=== PATIENT | female | born 1985 | race Caucasian/White ===

== ENCOUNTER 2017-08-22 18:00 | Outpatient (RCR) | payer OTHER, SELFPAY ==
--- NOTE | 2017-08-15 13:21 | HP.PTEVAL ---
Patient's Visit Information GENIE KEENE is a 32 year old F referred to Physical Therapy by Jesse Terrazas with a diagnosis of post concussion.. Date of Evaluation: 08/15/17 Physical Therapist: Justice Wallace DPT, OC - Visit Plan Frequency: 1x/Week Duration: 4-6 Weeks Plan: weekly x 4-6 as needed for progression of vestibular adaptation/habituation exercises. MSQ as needed. - Subjective Subjective: Walked into barbell at gym and bumped head.Initial in December 2015. Saw [facility] in February of that year and put on meds. Worsened over next couple months and did not go away. LEDBETTER and nausea continued with workout. Aslo reading and driving became worse. Got migraines. If very tired then felt like [place] was moving. Saw concussion specialist in [place] and ran a few tests negative. Eye doctor asked her to manage symptoms. Now is having difficulty performing at work with concentration. Has trouble reading with comprehension and eyestrain, gets LEDBETTER easily. LEDBETTER are frontal. Glare can also cause this. Wearing computer glasses at work. Striped shirts can be bothersome. Crowds and grocery stores make manageing life difficulty. Dizzy sometimes, LEDBETTER improving, no nausea lately. Changing position to standing causes short term dizzyness. Sleep is interrupted due to anxiety at work. mind races and sees counselor for thiat. Working out typically helps, heavy days are worse and needs to stay hydrated. Does powerlifting squats and volume right now. Needs to catch breath after a set. Deadlifts are the worst. 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 Performance can suffer. - Pain LEDBETTER Pain Intensity (Out of 10): 1 Pain Intensity Range: 0, 5 - Objective Walks well and trasnfers I. - B hallpike michele. C/S AROM WFL and painfree. Oculomotor: no nystagmus with gaze or head shake. pursuit and saccades are nromal. - head thrust. - skew eye deviations. VOR is symptomatic after 15 seconds and challenging quality bello with ambulation but safe. Balance appears to be good. - Balance Scores Functional Gait Assessment Score: 27 % Disability: 10.0000 CATSIB Score (Max score 120 seconds): 120 - Goals Goal 1:: 60 sec VOR x 2 walkign without symptoms. Goal Time Frame: 4-6 Weeks Goal 2:: Work withotu symptoms Goal Time Frame: 4-6 Weeks Goal 3:: Pt feel 90% improved in symptoms of LEDBETTER and goofy feeling overall. Goal Time Frame: 4-6 Weeks - Rehabilitation Potential Physical Therapy Diagnosis: possible vestibualr problems from post concussion. Rehabilitation Potential: Fair - Anticipated Interventions Patient/Client Instruction: Educate patient on: Condition, Plan of Care For the Purpose of:: To decrease pain Other: decrease dizzyness/LEDBETTER Comment: adaptation and habituation. For the Purpose of:: To decrease pain, To improve ability of physical actions for home/community/work/leisure Thank you for the opportunity to evaluate your patient. For Medicare and Medicare HMO plans, please review the plan of care and approve it. It will need to be FAXED BACK to us at [phone] for Medicare purposes. Please let me know if there are questions or concerns regarding this plan of care. Physician Signature: Date:
--- NOTE | 2017-11-07 11:18 | HP.PT.NRP ---
HP - Discharge Summary (1) - Patient Information GENIE KEENE was seen in my office for initial evaluation on 08/15/17. The following Plan of Care was established for this patient: Initial Frequency: 1x/Week Initial Duration: 4-6 Weeks - Anticipated Interventions Patient/Client Instruction: Educate patient on: Condition, Plan of Care For the Purpose of:: To decrease pain Other: decrease dizzyness/LEDBETTER For the Purpose of:: To decrease pain, To improve ability of physical actions for home/community/work/leisure This patient was last seen in our office 08/22/17. Pertinent comments regarding their Physical therapy will appear below: Pt seen 2 visits of plan of care and then cancelled remaining visits. At this point, I will discontinue due to nonattendance as it has jose over two months. At this point I will be discontinuing this patient from physical therapy. I would be happy to see this patient again in the future if found appropriate by the physician. Thank you! Justice Wallace, DPT, OC
== END 2017-08-22 19:00 | disposition home or self-care (01) ==
LOC: PT 18:00
PROVIDERS: Family Provider Family Medicine; PCP Family Medicine; Visit Provider Family Medicine
DX: F07.81 Postconcussional syndrome (principal)
CPT/HCPCS: 97110; 97162; 97530

== ENCOUNTER → 2017-10-16 17:40 | Outpatient (CLI) | payer OTHER, SELFPAY ==
--- NOTE | 2017-10-16 17:42 | CT_ITS ---
STUDY: CT PELVIS WITHOUT CONTRAST REASON FOR EXAM: Female, 32 years old. Mass on right posterior buttock/hip for 1.5 years. Fell on it 2 months ago with the subsequent enlargement. RADIATION DOSAGE (If Supplied By Facility): CTDIvol = ( 22.36 ) mGy, DLP = ( 676.92 ) mGycm TECHNIQUE: Transaxial imaging of the pelvis was performed with oral contrast, and without intravenous administration of contrast material. Multiplanar coronal and sagittal images were reformatted. Individualized dose optimization techniques were used for this CT. COMPARISON: None. FINDINGS: Normal urinary bladder. The uterus appears normal. Normal ovaries. Normal visualized small intestine. Normal visualized colon. There is no pelvic fluid. There is no pelvic mass lesion or lymphadenopathy. Normal visualized pelvic arteries. Normal abdominal wall. There is a low attenuation mass in the left gluteal muscles which measures 9.1 x 6.1 x 6.3 cm. A contains numerous linear internal calcifications as well as a larger spiculated calcification in its upper most portion. This appears to displace the gluteal muscles posteriorly and the piriformis anteriorly with slight protrusion through the greater sciatic notch. There is involvement off the lateral aspect of the sacrum with associated bony productivity which extends outward along the medial aspect of the mass. The right sacroiliac joint and blanche appear intact. CT/Pelvis without IV Contrast IMPRESSION: Large soft tissue mass within the right gluteal region with involvement on the sacrum. 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 Ultimately biopsy will be required for more definitive diagnosis. Electronically Signed: Timothy Pierce DO at 18:13 EST Tel [phone], Service support ,
== END ==
PROVIDERS: Family Provider Family Medicine; PCP Family Medicine; Visit Provider Family Medicine
DX: M25.551 Pain in right hip (principal)
CPT/HCPCS: 72192

== ENCOUNTER 2018-02-28 23:24 | Emergency (ER) | payer OTHER, SELFPAY ==
[2018-02-28 23:26] VITALS: BP 129/87; PULSE 82; RESP 16; TEMP 36.6; O2SAT 98; BMI 24.3
--- NOTE | 2018-02-28 23:46 | RAD_ITS ---
STUDY: X-RAY - RIGHT HAND REASON FOR EXAM: Female, 32 years old. Trauma TECHNIQUE: 3 view(s) of the hand. COMPARISON: None. FINDINGS: Normal radiocarpal articulation. Normal distal radioulnar joint. Normal visualized carpal bones. Normal carpal articulations Normal carpometacarpal articulation of the thumb. Normal second through fifth carpometacarpal joints. Normal metacarpi. Normal metacarpophalangeal joint of the thumb. Normal interphalangeal joint of the thumb. Normal proximal and distal phalanges of the thumb. Normal metacarpophalangeal joints of the second through fifth fingers. Normal proximal and distal interphalangeal joints of the second through fifth fingers. Normal phalanges of the second through fifth fingers. There is soft tissue swelling with subcutaneous air along the first digit. There is NO foreign body. RAD/Hand Min 3 Views IMPRESSION: There is soft tissue swelling with subcutaneous air along the first digit. There is NO foreign body. There is NO fracture. Electronically Signed: Velasquez Sykes MD at 1:01 EDT , Service support ,
--- NOTE | 2018-03-01 02:05 | ED.DCSUM_ITS ---
- ER Visit Summary Date of Service: 03/01/18 Chief Complaint: Dog bite History of Present Illness: The patient is a 32 F presenting for evaluation secondary to a dog bite to the right hand. Patient is right-hand dominant. Patient states that her dog was hit in the street today, and it bit her in the right hand when she was trying to help it. Patient states that her tetanus status is not up-to-date. She denies any numbness or weakness. Physical Examination: Physical exam is unremarkable except for upper extremity exam. Patient has normal active full range of motion at the wrist and index long ring and small digits. There is normal flexion extension abduction and adduction of the thumb. There is normal sensation distally with normal 2 point discrimination and normal capillary refill. There is over the thenar eminence a 1 cm laceration, a 4 cm laceration, and then over the upper and middle palm there is also 2 1 cm lacerations. Test Results: X-ray of the hand shows soft tissue swelling and soft tissue gas Emergency Department Course and Treatment: Patient presented for evaluation secondary to dog bite. There is no concern at this time for rabies as it was a family pet. Patient's tetanus status was updated. X-ray showed no evidence of bony injury. Patient's wounds were then addressed. Patient's wounds were anesthetized using a total of 10 cc 1% lidocaine via local infiltration and all of the patient's lacerations. After adequate analgesia was obtained, the patient's wounds were explored with hemostats and forceps and were copiously irrigated under pressure with saline using both angiocaths, pressure bottles, and a 60 cc syringe. I was not able to appreciate any sort of foreign bodies. 2 of the wounds on the thenar eminence did appear to communicate, and this communication was irrigated Via Angiocath. After all of the wounds were explored and copiously irrigated, they were approximated very loosely using 4-0 nylon suture. A total of 5 sutures were used. Bacitracin was placed over top of the wounds, and nonstick dressing was placed over top of that. Patient was placed in a volar resting splint that was performed by the ED physician. Patient was started on Augmentin, she was educated about the high risk of infection for bite wounds like this, and the fact that serious disability can occur if infection is severe and the patient requires operation, and was given signs and symptoms for which to return. Patient will be arranged follow-up with plastic surgery. She will be discharged with a course of Augmentin. I attempted to contact Dr. Pabon, plastic surgery, to ensure the patient had close outpatient follow-up as this is high risk for infection. However, he is only taking calls from the emergency department 10 days a month and this is not one of those days. Disposition: Discharge Impression: 1. Dog bite right hand 2. 4 cm laceration to the hand 3. 1 cm laceration to the hand 4. 1 cm laceration to the hand 5. 1 cm laceration to the hand 6. Laceration repair 7. Performed a volar resting splint by ED physician This note was generated with [employer] dictation software. It may contain incorrect words, spelling, and punctuation that were not noted in review of the chart prior to signing ED Disposition - Plan for ED Patient: Disposition: Home or Assisted Living Chief Complaint: Bite Diagnosis: Dog bite Instructions: ED Bite Dog Prescriptions: Amox/Clavulanate Tablet [Augmentin Tablet] 875 mg PO Q12H #20 tab Referrals: Reza Pabon MD [STAFF PHYSICIAN] - 2 Days for wound check
[2018-03-01] MEDS: Amox/Clavulanate 875 MG Tablet PO (02:17)
[2018-03-01] MEDS: Diphth,Pertuss(Acell),Tet Vac 0.5 ML Vial IM (02:17)
[2018-03-01 02:22] VITALS: RESP 16
== END 2018-03-01 02:23 | disposition home or self-care (01) ==
PROVIDERS: Emergency Provider Emergency Medicine; Family Provider Family Medicine; PCP Family Medicine
DX: S61.411A Laceration without foreign body of right hand, initial encounter (principal); W54.0XXA Bitten by dog, initial encounter; Y93.9 Activity, unspecified; Y92.9 Unspecified place or not applicable
CPT/HCPCS: 12002; 29125; 73130; 90471; 90715; 99284